=== PATIENT | male | born 1945 | race Caucasian/White ===

== ENCOUNTER 2017-03-28 09:35 | Inpatient (IN) | payer BC ==
[~2017-03-28] VITALS: Ht 172.7 cm; Wt 90.3 kg
--- NOTE | ~2017-03-28 | 2DMMODE ---
[facility] [address] [place] [address] 2 D/M-MODE ECHOCARDIOGRAM Name: AMINA BE Room #: 438-P ADM IN M.R.#: [id number] Admission: 03/28/17 Attend Phys: Gilberto Hess Discharge: Date of : 45 Date of Service: 03/29/17 1447 Report #: [id number] THIS REPORT FOR: //name// ADDENDUM APPROVED REPORT Study performed: 03/29/2017 13:39:23 EXAM: Comprehensive 2D, Doppler, and color-flow Echocardiogram Patient Location: Echo lab Room #: [facility] Status: routine BSA: 2.04 HR: 88 bpm BP: 149/79 mmHg Rhythm: NSR Other Information Study Quality: Good Indications Peripheral Edema CVA. Hx: TIA, HTN Echo Enhancing Agent Indication: Rule out Shunt Agent(s) / Amount(s) Used: Agitated Saline 6 cc 2D Dimensions RVDd: 39.40 mm LVEF(%): 61.97 (>50%) IVSd: 12.25 (7-11mm) LVOT Diam: 21.32 (18-24mm) LVDd: 47.32 mm PWd: 11.68 (7-11mm) Ascending Ao: 37.59 (22-36mm) LVDs: 31.54 (25-40mm) Aortic Root: 36.50 mm Maldonado's LVEF: 61.97 % Volumes Left Atrial Volume (Systole) Single Plane 4CH: 55.28 mL Single Plane 2CH: 53.33 mL LA ESV Index: 29.00 mL/m2 Aortic Valve AoV Peak Shankar.: 2.12 m/s AO Peak Gr.: 17.30 mmHg LVOT Max P.46 mmHg AO Mean Gr.: 10.68 mmHg [facility] [place] [address] [place] [address] 2 D/M-MODE ECHOCARDIOGRAM Name: AMINA BE Room #: 438-P [facility] IN M.R.#: [id number] Admission: 03/28/17 Attend Phys: Gilberto Hess Discharge: Date of : 45 Date of Service: 03/29/17 1447 Report #: [id number] AO V2 Mean: 1.58 m/s LVOT Max V: 1.17 m/s AO V2 VTI: 40.13 cm LIZ Vmax: 1.96 cm2 Mitral Valve E/A Ratio: 1.3 MV Decel. Time: 167.12 ms MV E Max Shankar.: 0.71 m/s MV A Shankar.: 0.55 m/s MV PHT: 48.47 ms IVRT: 92.27 ms Pulmonary Valve PV Peak Shankar.: 1.84 m/s PV Peak Gr.: 13.54 mmHg Pulmonary Vein P Vein S: 0.61 m/s P Vein A: 0.36 m/s P Vein D: 0.38 m/s P Vein A Dur.: 110.7 msec P Vein S/D Ratio: 1.61 Tricuspid Valve RAP Estimate: 5.00 mmHg Left Ventricle The left ventricle is normal size. There is normal LV segmental wall motion. Mild concentric left ventricular hypertrophy. Left ventricular systolic function is normal. LVEF is 60-65%. Moderate diastolic dysfunction is present (pseudonormal filling). Right Ventricle The right ventricle is normal size. The right ventricular systolic function is normal. Atria The left atrium size is normal. Injection of bubbles documented no interatrial shunt. The right atrium size is normal. Aortic Valve Aortic valve is calcified. Trace aortic regurgitation. There is no aortic valvular stenosis. Mitral Valve The mitral valve is normal in structure. Trace mitral regurgitation. Tricuspid Valve [facility] [address] [place] [address] 2 D/M-MODE ECHOCARDIOGRAM Name: AMINA BE Room #: 438-P [facility] IN ..#: [id number] Admission: 03/28/17 Attend Phys: Gilberto Hess Discharge: Date of : 45 Date of Service: 03/29/17 1447 Report #: [id number] The tricuspid valve is normal in structure. Trace tricuspid regurgitation. Trace tricuspid regurgitation. Unable to assess PA pressure. Pulmonic Valve The pulmonary valve is normal in structure. Trace pulmonic regurgitation. Great Vessels The aortic root is normal in size. The ascending aorta is mildly dilated. IVC is normal in size and collapses >50% with inspiration. Pericardium No pericardial effusion. <Conclusion> The left ventricle is normal size. LVEF is 60-65%. Aortic valve is calcified. Trace aortic regurgitation. The mitral valve is normal in structure. Trace mitral regurgitation. The tricuspid valve is normal in structure. Trace tricuspid regurgitation. Trace tricuspid regurgitation. Unable to assess PA pressure. The pulmonary valve is normal in structure. Trace pulmonic regurgitation. No pericardial effusion. Injection of bubbles documented no interatrial shunt. <ELECTRONICALLY SIGNED> By: Morgan Torres MD 03/29/17 1447 1447 144 Morgan Torres MD /INF
--- NOTE | ~2017-03-28 | HC ---
[facility] [place] [address] CONSULTATION Name: HAILEAMINA Room #: 438-P [facility] IN M.R.#: [id number] Admission: 03/28/17 Attend Phys: Gilberto Gallardo Discharge: 03/30/17 Date of : 45 Report #: [id number] THIS REPORT FOR: //name// CC: JAE Gallardo DATE OF SERVICE: 03/28/2017 HISTORY OF PRESENT ILLNESS: This is a 71-year-old male patient who was evaluated by me for an episode of speech difficulty. He woke up with this and he noticed that he had speech difficulty. He did not have much focal signs associated with it. It was moderate severity. It came spontaneously and subsequently resolved spontaneously. REVIEW OF SYSTEMS: Indicate that he had a similar episode about 2-3 years ago. He was in the [facility]. I do not have the record from the [facility]. According to him, he did have some workup, but not very extensive workup. He believes his cholesterol was high at that time. He did not take aspirin on a regular basis and he did not have a repeat cholesterol done to what his cholesterol was, but he did say that he take his cholesterol medicine rather regularly. Review of systems is otherwise unremarkable. He is not complaining of any new eye, ENT, cardiac, respiratory, GI, , musculoskeletal, constitutional, dermatological, hematological, psychiatric, throat or allergic symptom associated with present symptomatology. PAST MEDICAL HISTORY: Positive for TIA and he had similar symptoms at that time and at that time, he thought his right side was somewhat weak. FAMILY HISTORY: Negative for early age stroke. SOCIAL HISTORY: This patient does drink alcohol. He drinks about 2 alcoholic drinks a day. Sometime, he does more than that. Most of the time, he drinks about 2 alcoholic drinks a day. He was never a smoker. PHYSICAL EXAMINATION: NEUROLOGIC: Indicates he is alert and responsive. He can follow simple commands. He does not appear to have marked speech difficulty. His memory, fund of knowledge is at his baseline. Cranial nerve examination 2-12 is unremarkable. His strength, sensation, reflexes and tone looks symmetrical. There is no cerebellar sign. There is no carotid bruit in this patient. I could not look at the fundus very well. He is a well-developed individual who does not have any dysmorphic features of eyes, ears and face. His vision and hearing looks adequate. NECK: He has no thyroid mass or carotid bruit. CARDIAC: Shows unremarkable heart sounds and no murmur. RESPIRATORY: Does not appear to be showing any respiratory difficulty. [facility] [address] [place] [address] CONSULTATION Name: AMINA BE Room #: 438-P [facility] IN M.R.#: [id number] Admission: 03/28/17 Attend Phys: Gilberto Gallardo Discharge: 03/30/17 Date of : 45 Report #: [id number] EXTREMITIES: His pulses are palpable and he has no edema, cyanosis or jaundice. VITAL SIGNS: His blood pressure has fluctuated. Last blood pressure is 144/51, respirations are 19, pulse is 79, temperature is 98.8. LABORATORY DATA: Indicates that his triglycerides are still high at 233, his LDL is 80 and his HDL is 38. His CT angio demonstrated diffuse disease. His MRI demonstrated multifocal CVA, which will correlate with the patient's symptom because earlier he had left-sided symptoms. IMPRESSION: Multi-central cerebrovascular accident. Multiple things need to be done in this patient. He needs to be extensively worked up for any source of embolization. We will start with an echocardiogram. We will do some more extensive blood workup in this patient tomorrow. He will need a prolonged monitor to look for atrial fibrillation. Until atrial fibrillation can be documented when he is here, we will like to switch him to Plavix. I discussed all of it with the patient. PLAN: 1. Switch to Plavix. For 5 days, we will use combination of aspirin and Plavix, but subsequently he will go on Plavix. I discussed his potential side effect and alternative and he understands that. 2. High dose statin. 3. Workup for any collagen vascular abnormality. 4. 30 days event monitor as an outpatient to look for atrial fibrillation. 5. Decided about doing a CHLOE depending upon the results of echocardiogram. 6. He does need some basic cardiac workup to make sure that he is not developing cardiac abnormality at the same time. All of it was discussed with the patient in detail and he wants to follow this plan. Thank you very much for this referral. <ELECTRONICALLY SIGNED> By: Devon Madera MD 03/31/17 1348 57 09 Devon Madera MD /nt
--- NOTE | ~2017-03-28 | HC ---
[facility] [place] [address] CONSULTATION Name: AMINA BE Room #: 438-P [facility] IN M.R.#: [id number] Admission: 03/28/17 Attend Phys: Gilberto Gallardo Discharge: Date of : 45 Report #: [id number] THIS REPORT FOR: //name// CC: JAE Gallardo DATE OF SERVICE: 03/30/2017 HISTORY OF PRESENT ILLNESS: The patient is a 71-year-old right-handed male who was admitted through the Emergency Department with slurred speech and some left sensory deficits. His speech problem is resolved. He denies any further left-sided sensory difficulties. MRI, however, did show evidence of multifocal CVAs. There is a question of whether these are embolic. Cardiology is involved. He has an event recorder that has been hooked up. We are seeing him in rehabilitation medicine consultation. PAST MEDICAL HISTORY: Includes hypertension, dyslipidemia, hypothyroidism. MEDICATIONS: Please see the full medication listing. ALLERGIES: No known drug allergies. HABITS: No history of tobacco abuse, does have alcohol, a couple of drinks daily. SOCIAL HISTORY: Lives in a house with his , one step in. Did not utilize any adaptive aids. There are 12 inside steps. REVIEW OF SYSTEMS: No current complaints of chest pain, shortness of breath, abdominal discomfort. No complaints of visual problems, numbness. Feels he is doing quite well. PHYSICAL EXAMINATION: GENERAL: A 71-year-old right-handed white male in no obvious distress. VITAL SIGNS: Last recorded temperature is 97.9, pulse 73, respirations 18, blood pressure 138/82. He is alert, pleasant, oriented. HEENT: Appeared to be benign. Facies are symmetric. EXTREMITIES: He has functional range of motion of both upper extremities without focal weakness. DTRs are trace to 1. Good coordination, normal tone. Lower extremities, no focal calf swelling. No distal lower extremity edema, functional range of motion with strength grade 5/5. DTRs are trace to 1. He is independent as far as transfers and gait, walking 300 feet without an assistive device. He has actually been discharged from PT and OT. ASSESSMENT: A 71-year-old right-handed white male with the following problems: 1. Multifocal CVAs[place] [address] CONSULTATION Name: AMINA BE Room #: 438-P [facility] IN M.R.#: [id number] Admission: 03/28/17 Attend Phys: Gilberto Gallardo Discharge: Date of : 45 Report #: [id number] 2. Some slurred speech and left sensory deficits that have noted to resolve. 3. History of hypertension. 4. History of dyslipidemia. 5. Hypothyroidism. PLAN: The patient is actually too high level to warrant an acute in-hospital inpatient rehabilitation stay. He is functioning quite well and has actually been discharged from PT and OT. Thank you for asking us to assist in this patient's care. By: 1037 1211 Nishant Beatty MD /KOBI
--- NOTE | ~2017-03-28 | EKG ---
[address] [address] ELECTROCARDIOGRAM REPORT Name: AMINA BE Room #: 438-P ADM IN M.R.#: [id number] Admission: 03/28/17 Attend Phys: Gilberto Gallardo Discharge: Date of : 45 Report #: [id number] THIS REPORT FOR: //name// [facility] ED Test Date: 2017-03-28 Test Time: 09:54:45 Pat Name: AMINA BE Department: Room: 438 Gender: M Asphalt Paver: lety : 1945 Requested By: Venu Willis Order Number: [id number] MD: Jose Brock Measurements Intervals [place] Rate: 81 P: 72 AL: 146 QRS: -31 QRSD: 102 T: 25 QT: 399 QTc: 464 Interpretive Statements Sinus rhythm Left axis deviation No previous ECG available for comparison Electronically Signed On 03-28-2017 23:38:38 COMMUNICATIONS PROJECT MANAGER by Jose Brock [email or web address] <ELECTRONICALLY SIGNED> By: Jose Brock MD 03/28/17 2338 [id number] Jose Brock MD /ABNER
[2017-03-28 09:38] VITALS: BP 169/102
[2017-03-28 09:54] LABS: HEMATOCRIT 43.9 % (42.0-52.0); HEMOGLOBIN 15.5 gm/dL (14.0-18.0); MCHC 35.3 g/dL (28.0-37.0); RBC 4.31 mil/uL (4.50-6.00); RDW 12.6 % (10.5-14.5); WBC 6.7 thou/uL (4.0-11.0)
[2017-03-28 10:06] LABS: POC CA IONIZED 4.8 mg/dL (4.5-5.3); POC CREATININE 1.2 mg/dL (0.6-1.3); POC HEMOGLOBIN 15.6 g/dL (14.0-18.0); POC POTASSIUM 3.8 mmol/L (3.5-5.1)
[2017-03-28 10:07] LABS: APTT 26.8 Seconds (24.5-32.8); PROTIME 9.9 Seconds (9.3-11.4)
[2017-03-28] MEDS ORDERED: LIPITOR80 MG PO (10:12)
[2017-03-28] MEDS ORDERED: SYNTHROID25 MCG PO (10:13)
[2017-03-28] MEDS ORDERED: CRESTOR40 MG PO (10:13)
[2017-03-28] MEDS ORDERED: OMEPRAZOLE40 MG PO (10:14)
[2017-03-28] MEDS ORDERED: CANASA1000 MG PO (10:15)
[2017-03-28 10:16] LABS: ANION GAP 9 mmol/L (7-16); BUN 14 mg/dL (7-18); CALCIUM 9.2 mg/dL (8.5-10.1); CHLORIDE 105 mmol/L (98-107); CO2 26 mmol/L (21-32); CREATININE 1.3 mg/dL (0.7-1.3); GLUCOSE 127 mg/dL (74-106); POTASSIUM 3.8 mmol/L (3.5-5.1); SODIUM 140 mmol/L (136-145); TROPONIN-I < 0.04 ng/mL (<0.06)
[2017-03-28] MEDS ORDERED: FLEXERIL PO (10:16)
[2017-03-28] MEDS ORDERED: ENBREL 25 MG KI25 M1 IM (10:17)
[2017-03-28 10:49] VITALS: BP 169/102
[2017-03-28 11:25] LABS: CHOLESTEROL 164 mg/dL (<200); HDL CHOLESTEROL 38 mg/dL (>40); LDL CHOLESTEROL 80 mg/dL (<100); TC:HDL 4.3 Ratio (Not establshd); TRIGLYCERIDE 233 mg/dL (<150); VLDL 47 mg/dL (<40)
[2017-03-28 12:41] VITALS: BP 167/110
[2017-03-28 14:19] VITALS: BP 168/92
[2017-03-28 16:20] VITALS: BP 166/87
[2017-03-28 19:31] VITALS: BP 144/51
[2017-03-28 22:00] LABS: TSH 7.696 uIU/mL (0.358-3.740)
[2017-03-29 00:04] VITALS: BP 136/71
[2017-03-29 03:38] VITALS: BP 144/79
[2017-03-29 08:43] VITALS: BP 149/79
[2017-03-29 16:41] VITALS: BP 125/65
[2017-03-29 21:08] VITALS: BP 155/76
[2017-03-30 01:36] VITALS: BP 114/68
[2017-03-30 05:51] VITALS: BP 125/71
[2017-03-30 08:00] VITALS: BP 138/82
[2017-03-30] MEDS ORDERED: CLOPIDOGREL75 MG PO (11:34)
[2017-03-30] MEDS ORDERED: NORVASC10 MG PO (11:34)
[2017-03-30] MEDS ORDERED: BENAZEPRIL HCL20 MG PO (11:35)
[2017-03-30] MEDS ORDERED: ASPIRIN325 PO (11:35)
[2017-03-30] MEDS ORDERED: SYNTHROID25 MCG PO (11:35)
[2017-03-30 13:45] VITALS: BP 138/82
== END 2017-03-30 14:11 | disposition home or self-care (01) | DRG 66 ==
LOC: ER 09:35 → 4S 10:24 → EROBS 10:24 → 4S 12:43
PROVIDERS: Emergency Medicine; Hospitalist; Psychiatry & Neurology Neuromuscular Medicine
PROC: B24BZZ4 Ultrasonography of Heart with Aorta, Transesophageal (ICD-10-PCS; principal; 2017-03-29)
DX: I63.49 Cerebral infarction due to embolism of other cerebral artery (principal); I10 Essential (primary) hypertension; E78.5 Hyperlipidemia, unspecified; E03.9 Hypothyroidism, unspecified; R47.1 Dysarthria and anarthria; Z79.899 Other long term (current) drug therapy; Z82.49 Family history of ischemic heart disease and other diseases of the circulatory system
CPT/HCPCS: 10100